=== PATIENT | male | born 1965 | race Caucasian/White ===

== ENCOUNTER 2019-02-16 06:37 | Day surgery (SDC) | payer MEDICAID ==
[~2019-02-16 06:37] MED LIST: SODIUM CHLORIDE 0.9% 1,000 ML IV ONE
[2019-02-16] MEDS ORDERED: PROPOFOL 1% 20 ML VIAL IVP ONE (06:38)
[2019-02-16] MEDS ORDERED: LIDOCAINE/PF 2% 5 ML VIAL IM ONE (06:38)
[2019-02-16 07:31] LABS: GLUCOMETER DEV NAME(LOC) SDS.; GLUCOSE,POINT OF CARE 106 MG/DL (70-110)
== END 2019-02-16 10:15 | disposition home or self-care (01) ==
LOC: SURGERY 06:37
PROVIDERS: ATTEND Internal Medicine Gastroenterology
DX: R19.5 Other fecal abnormalities (principal); K63.5 Polyp of colon; K57.30 Diverticulosis of large intestine without perforation or abscess without bleeding; K64.8 Other hemorrhoids; K29.50 Unspecified chronic gastritis without bleeding; I10 Essential (primary) hypertension; E11.9 Type 2 diabetes mellitus without complications; F20.9 Schizophrenia, unspecified; F17.200 Nicotine dependence, unspecified, uncomplicated; Z79.899 Other long term (current) drug therapy; Z79.84 Long term (current) use of oral hypoglycemic drugs
CPT/HCPCS: 45380; 43239; 82962; 88305; 88312; 88313; C1769; J2704; J3490; J7030